=== PATIENT | male | born 1975 | race African-American/Black ===

== ENCOUNTER 2017-11-11 13:40 | Inpatient (IN) | payer MEDICAID ==
[~2017-11-11] VITALS: Ht 177.8 cm; Wt 87.4 kg
[~2017-11-11 13:40] MED LIST: DIPH25CA66 PO; HYDR2TAB58 PO
[2017-11-11 15:20] LABS: Basophils # (auto) 0.1 uL; Eosinophils # (auto) 0.4 uL; Monocytes # (auto) 2.8 uL; Neutrophils # (auto) 10.2 uL
[2017-11-11 15:26] LABS: Basophils % (auto) 0.4 % (0.0-2.0); Eosinophils % (auto) 2.5 % (0.0-7.0); Hemoglobin 12.4 g/dL (13.5-17.5); Lymphocytes # (auto) 3.3 uL; Lymphocytes % (auto) 19.9 % (10.0-50.0); Mean Corpuscular Hgb Conc. 34.5 g/dL (32.0-36.0); Mean Corpuscular Volume 87.1 fL (80.0-100.0); Monocytes % (auto) 16.7 % (0.0-12.0); Neutrophils % (auto) 60.5 % (37.0-80.0); Platelet Count (auto) 396 10^3/uL (140-450); Red Blood Cells 4.13 10^6/uL (4.5-5.90); Red Cell Distribution Width 17.6 % (11.8-14.3); White Blood Cell 16.8 10^3/uL (4.4-10.8)
[2017-11-11 15:35] LABS: Albumin 4.1 g/dL (3.4-5.0); BUN/Creatinine Ratio 5.6; Potassium 4.6 mmol/L (3.5-5.1); Total Protein 8.3 g/dL (6.4-8.2)
[2017-11-11] MEDS ORDERED: SODIUM CHLORIDE 0.9% 1,000 ML IVB ONE (15:52)
[2017-11-11] MEDS ORDERED: SODIUM CHLORIDE 0.9% 1,000 ML IV ONE (16:00)
[2017-11-11] MEDS ORDERED: ONDANSETRON HCL 4 MG/2 ML VIAL IV ONE (16:00)
[2017-11-11] MEDS ORDERED: MEPERIDINE HCL (25 MG/ML) 1ML VIAL IV ONE ×2 (16:00→18:00)
[2017-11-11] MEDS ORDERED: MEPERIDINE HCL (50 MG/ML) 1 ML VIAL ONE ×2 (16:14→17:51)
[2017-11-11] MEDS ORDERED: PROMETHAZINE HCL 25 MG/ML 1ML IV ONE ×2 (16:15→18:00)
[2017-11-11] MEDS ORDERED: PROMETHAZINE HCL 25 MG/ML 1ML ONE (17:51)
[2017-11-11 18:57] LABS: Urine Bacteria NONE SEEN /hpf (None Seen); Urine Blood Negative /uL (Negative); Urine Specific Gravity 1.003 (1.001-1.035); Urine WBC <1 /hpf (0 - 3)
[2017-11-11] MEDS ORDERED: FOLIC ACID 1 MG in D5W 5% 50 ML INJ ONE (19:30)
[2017-11-11] MEDS ORDERED: LORazepam 0.5 MG TAB PO PRN (19:30)
[2017-11-11] MEDS ORDERED: ACETAMINOPHEN 500 MG TAB PO PRN (19:30)
[2017-11-11] MEDS ORDERED: NITROGLYCERIN 0.4 MG SL TAB SL PRN (19:30)
[2017-11-11] MEDS ORDERED: HYDROcodone-ACET 5/325MG TAB PO PRN (19:30)
[2017-11-11] MEDS ORDERED: LACTULOSE 20Gm/30ML SOLN PO PRN (19:30)
[2017-11-11] MEDS ORDERED: HYDROmorphone HCL 2 MG/ML VL IV PRN (19:30)
[2017-11-11] MEDS ORDERED: NALBUPHINE HCL 10 MG/1ml INJECTION IV PRN (20:00)
[2017-11-11] MEDS ORDERED: OXYCODONE W/ ACETAMINOPHEN 5/325MG TABLET PO PRN (20:00)
[2017-11-11] MEDS: D5W/SOD CHLO 0.9% 1,000 ML IV SCH (20:11)
[2017-11-11] MEDS ORDERED: FOLIC ACID 1 MG TAB PO ONE (20:15)
[2017-11-11 20:21] LABS: INR 0.94 (0.9-1.15); Partial Thromboplastin Time 27.8 sec (23.78-33.04); Prothrombin Time 10.1 sec (9.27-12.13)
[2017-11-11] MEDS: NALBUPHINE HCL 10 MG/1ml INJECTION IV PRN (22:43)
[2017-11-12] MEDS: OXYCODONE W/ ACETAMINOPHEN 5/325MG TABLET PO PRN ×3 (00:06→15:28)
[2017-11-12] MEDS ORDERED: KETOROLAC TROMETH 30 MG/ML 1ML VIAL IV ONE (01:15)
[2017-11-12] MEDS: TEMAZEPAM 15 MG CAP PO PRN (01:35)
[2017-11-12] MEDS: NALBUPHINE HCL 10 MG/1ml INJECTION IV PRN ×2 (05:58→19:14)
[2017-11-12] MEDS: D5W/SOD CHLO 0.9% 1,000 ML IV SCH (06:09)
[2017-11-12 06:37] LABS: Basophils # (auto) 0.1 uL; Basophils % (auto) 0.8 % (0.0-2.0); Eosinophils # (auto) 0.4 uL; Eosinophils % (auto) 2.8 % (0.0-7.0); Hematocrit 33.3 % (41.0-53.0); Hemoglobin 11.4 g/dL (13.5-17.5); Lymphocytes # (auto) 4.3 uL; Lymphocytes % (auto) 29.1 % (10.0-50.0); Mean Corpuscular Hemoglobin 29.4 pg (28.0-32.0); Mean Corpuscular Hgb Conc. 34.2 g/dL (32.0-36.0); Mean Corpuscular Volume 86.1 fL (80.0-100.0); Monocytes % (auto) 13.4 % (0.0-12.0); Neutrophils % (auto) 53.9 % (37.0-80.0); Platelet Count (auto) 358 10^3/uL (140-450); Red Blood Cells 3.87 10^6/uL (4.5-5.90); Red Cell Distribution Width 17.5 % (11.8-14.3); White Blood Cell 14.9 10^3/uL (4.4-10.8)
[2017-11-12] MEDS: PANTOPRAZOLE 40 MG TAB PO SCH (06:39)
[2017-11-12 10:00] VITALS: BP 142/65
[2017-11-12] MEDS: ENOXAPARIN SOD 40 MG/0.4 ML SYRINGE SC SCH (10:00)
[2017-11-12] MEDS: FOLIC ACID 1 MG TAB PO SCH (11:22)
[2017-11-12] MEDS ORDERED: MEPERIDINE HCL (50 MG/ML) 1 ML VIAL IV ONE (12:00)
[2017-11-12] MEDS ORDERED: MEPERIDINE HCL (25 MG/ML) 1ML VIAL IV PRN (13:00)
[2017-11-12] MEDS: PROMETHAZINE HCL 25 MG/ML 1ML IV PRN ×2 (13:19→17:27)
[2017-11-12] MEDS: MEPERIDINE HCL (50 MG/ML) 1 ML VIAL IV PRN ×3 (13:20→21:39)
[2017-11-12 14:30] LABS: Hematocrit 34.8 % (41.0-53.0); Hemoglobin 11.8 g/dL (13.5-17.5)
[2017-11-12] MEDS: SOD CHL 0.45% 1,000 ML IV SCH ×2 (14:34→21:39)
[2017-11-12 15:00] VITALS: BP 142/65
[2017-11-12] MEDS ORDERED: PERCOT GT (15:39)
[2017-11-12 22:00] VITALS: BP 146/81
[2017-11-13] MEDS: TEMAZEPAM 15 MG CAP PO PRN ×2 (01:05→23:53)
[2017-11-13] MEDS: NALBUPHINE HCL 10 MG/1ml INJECTION IV PRN ×2 (01:18→09:07)
[2017-11-13] MEDS: MEPERIDINE HCL (50 MG/ML) 1 ML VIAL IV PRN ×6 (01:18→23:52)
[2017-11-13] MEDS: SOD CHL 0.45% 1,000 ML IV SCH ×4 (03:34→23:10)
[2017-11-13] MEDS: PANTOPRAZOLE 40 MG TAB PO SCH (05:03)
[2017-11-13 05:37] VITALS: BP 163/95
[2017-11-13 08:00] VITALS: BP 124/64
[2017-11-13 08:01] LABS: Hematocrit 33.9 % (41.0-53.0); Hemoglobin 11.4 g/dL (13.5-17.5); Mean Corpuscular Hemoglobin 28.9 pg (28.0-32.0); Mean Corpuscular Hgb Conc. 33.7 g/dL (32.0-36.0); Mean Corpuscular Volume 85.8 fL (80.0-100.0); Platelet Count (auto) 373 10^3/uL (140-450); Red Blood Cells 3.95 10^6/uL (4.5-5.90); Red Cell Distribution Width 17.1 % (11.8-14.3); White Blood Cell 14.8 10^3/uL (4.4-10.8)
[2017-11-13 08:13] LABS: Band Neutrophils % (manual) 0; Basophils % (manual) 0 (0.0-2.0); Blast Cells 0; Metamyelocytes % 0; Myelocytes % 0; Promyelocytes % 0; Reactive Lymphocytes 0
[2017-11-13 08:23] LABS: BUN/Creatinine Ratio 6.6; Calcium 8.7 mg/dL (8.5-10.1); Magnesium 2.3 mg/dL (1.6-2.6); Potassium 3.6 mmol/L (3.5-5.1)
[2017-11-13 08:32] LABS: Eosinophils % (manual) 2 (0-7); Lymphocytes % (manual) 36 (10.0-50.0); Monocytes % (manual) 12 (0-12)
[2017-11-13] MEDS: FOLIC ACID 1 MG TAB PO SCH (09:08)
[2017-11-13] MEDS: ENOXAPARIN SOD 40 MG/0.4 ML SYRINGE SC SCH (09:08)
[2017-11-13 12:07] VITALS: BP 128/60
[2017-11-13] MEDS ORDERED: HYDROmorphone HCL 2 MG TAB PO PRN (16:30)
[2017-11-13] MEDS ORDERED: MEPERIDINE HCL (50 MG/ML) 1 ML VIAL IV PRN (16:30)
[2017-11-13 16:52] VITALS: BP 140/72
[2017-11-13 22:00] VITALS: BP 136/61
[2017-11-14] MEDS: SOD CHL 0.45% 1,000 ML IV SCH ×2 (03:37→12:30)
[2017-11-14] MEDS: MEPERIDINE HCL (50 MG/ML) 1 ML VIAL IV PRN ×3 (03:38→11:54)
[2017-11-14] MEDS: PANTOPRAZOLE 40 MG TAB PO SCH (05:51)
[2017-11-14 06:00] VITALS: BP 127/68
[2017-11-14 09:00] VITALS: BP 145/84
[2017-11-14] MEDS: FOLIC ACID 1 MG TAB PO SCH (09:31)
[2017-11-14] MEDS: ENOXAPARIN SOD 40 MG/0.4 ML SYRINGE SC SCH (09:31)
[2017-11-14 13:07] VITALS: BP 157/84
== END 2017-11-14 13:50 | disposition home or self-care (01) | DRG 662 ==
LOC: ER 13:40 → TELE 13:41 → TELE-WESTW 11-12 10:04
PROVIDERS: ADMIT Internal Medicine; ATTEND Internal Medicine
DX: D57.00 Hb-SS disease with crisis, unspecified (principal); D72.829 Elevated white blood cell count, unspecified; G89.4 Chronic pain syndrome; F12.90 Cannabis use, unspecified, uncomplicated; G47.00 Insomnia, unspecified; K59.00 Constipation, unspecified; R79.89 Other specified abnormal findings of blood chemistry; F41.9 Anxiety disorder, unspecified; F17.210 Nicotine dependence, cigarettes, uncomplicated; Z82.49 Family history of ischemic heart disease and other diseases of the circulatory system; Z83.3 Family history of diabetes mellitus; Z90.49 Acquired absence of other specified parts of digestive tract; Z80.8 Family history of malignant neoplasm of other organs or systems; Z88.6 Allergy status to analgesic agent; Z88.5 Allergy status to narcotic agent; Z79.899 Other long term (current) drug therapy
CPT/HCPCS: 36415; 71046; 80048; 80053; 81001; 83615; 83735; 85007; 85014; 85018; 85025; 85027; 85045; 85610; 85730; 87081; 93005; 94761; 96361; 96374; 96375; 96376; J1885; J7060

== ENCOUNTER 2021-08-02 13:40 | Inpatient (IN) | payer MEDICAID, OTHER ==
[~2021-08-02] VITALS: Ht 177.8 cm; Wt 88.8 kg
[~2021-08-02 13:40] MED LIST changes: -HYDR2TAB58 PO
[2021-08-02] MEDS ORDERED: SODIUM CHLORIDE 0.9% 1,000 ML IV ONE ×2 (14:00→17:00)
[2021-08-02] MEDS ORDERED: HYDROmorphone HCL 2 MG/ML VL IV ONE ×5 (14:00→20:45)
[2021-08-02] MEDS ORDERED: ONDANSETRON HCL 4 MG/2 ML VIAL IV ONE (14:00)
[2021-08-02 15:29] LABS: Basophils # (auto) 0.2 10 ^3/uL (0-0.2); Basophils % (auto) 0.9 % (0.0-2.0); Eosinophils # (auto) 0.4 10 ^3/uL (0-0.8); Eosinophils % (auto) 2.1 % (0.0-7.0); Hemoglobin 10.5 g/dL (13.5-17.5); Lymphocytes % (auto) 22.9 % (10.0-50.0); Mean Corpuscular Hemoglobin 30.8 pg (28.0-32.0); Mean Corpuscular Hgb Conc. 33.9 g/dL (32.0-36.0); Mean Corpuscular Volume 90.7 fL (80.0-100.0); Monocytes # (auto) 2.1 10 ^3/uL (0-1.3); Monocytes % (auto) 12.2 % (0.0-12.0); Neutrophils # (auto) 10.7 10 ^3/uL (1.6-8.6); Neutrophils % (auto) 61.9 % (37.0-80.0); Nucleated Red Blood Cells % 1.1 %; Red Blood Cells 3.41 10^6/uL (4.5-5.90); Red Cell Distribution Width 14.6 % (11.8-14.3); White Blood Cell 17.3 10^3/uL (4.4-10.8)
[2021-08-02 15:38] LABS: Albumin 3.6 g/dL (3.4-5.0); BUN/Creatinine Ratio 10.2; Calcium 8.9 mg/dL (8.5-10.1); Potassium 4.5 mmol/L (3.5-5.1)
[2021-08-02 15:41] LABS: Total Protein 7.3 g/dL (6.4-8.2)
[2021-08-02] MEDS ORDERED: TEMAZEPAM 15 MG CAP PO PRN (19:15)
[2021-08-02] MEDS ORDERED: ACETAMINOPHEN 325 MG TAB PO PRN (19:15)
[2021-08-02] MEDS ORDERED: ONDANSETRON HCL 4 MG/2 ML VIAL IV PRN (19:15)
[2021-08-02] MEDS ORDERED: HYDROcodone-ACET 5/325MG TAB PO PRN (19:15)
[2021-08-02] MEDS ORDERED: SODIUM CHLORIDE 0.9% 1,000 ML IV SCH (19:15)
[2021-08-02] MEDS: HYDROmorphone HCL 2 MG/ML VL IV PRN ×2 (19:52→23:58)
[2021-08-02 23:00] VITALS: BP 152/85
[2021-08-02 23:43] VITALS: BP 152/82
[2021-08-03] MEDS ORDERED: HYDROmorphone HCL 2 MG/ML VL IV ONE ×2 (00:15→04:00)
[2021-08-03 04:56] VITALS: BP 151/79
[2021-08-03] MEDS ORDERED: FOLI1TAB6 PO (05:00)
[2021-08-03] MEDS ORDERED: HYDR500C PO (05:00)
[2021-08-03 05:58] LABS: Hematocrit 28.3 % (41.0-53.0); Hemoglobin 10.1 g/dL (13.5-17.5); Mean Corpuscular Hemoglobin 31.8 pg (28.0-32.0); Mean Corpuscular Hgb Conc. 35.6 g/dL (32.0-36.0); Mean Corpuscular Volume 89.5 fL (80.0-100.0); Red Blood Cells 3.16 10^6/uL (4.5-5.90); Red Cell Distribution Width 15.2 % (11.8-14.3); White Blood Cell 17.6 10^3/uL (4.4-10.8)
[2021-08-03 06:12] LABS: Albumin 3.6 g/dL (3.4-5.0); Calcium 8.5 mg/dL (8.5-10.1); Potassium 4.4 mmol/L (3.5-5.1)
[2021-08-03 06:17] LABS: BUN/Creatinine Ratio 8.2; Bilirubin, Total 2.2 mg/dL (0.2-1.0); Total Protein 7.4 g/dL (6.4-8.2)
[2021-08-03] MEDS ORDERED: KETOROLAC TROMETH 30 MG/ML 1ML VIAL IV ONE (06:17)
[2021-08-03 06:22] LABS: Band Neutrophils % (manual) 0; Basophils % (manual) 0 (0.0-2.0); Blast Cells 0; Metamyelocytes % 0; Myelocytes % 0; Promyelocytes % 0; Reactive Lymphocytes 0
[2021-08-03] MEDS: HYDROcodone-ACET 7.5/325MG TAB PO PRN ×2 (06:32→21:50)
[2021-08-03 08:31] LABS: Eosinophils % (manual) 3 (0-7); Lymphocytes % (manual) 33 (10.0-50.0); Monocytes % (manual) 19 (0-12)
[2021-08-03] MEDS: PANTOPRAZOLE 40 MG/10 ML VIAL INJ IV SCH (08:43)
[2021-08-03 09:00] VITALS: BP 146/82
[2021-08-03] MEDS: HYDROmorphone HCL 2 MG/ML VL IV PRN ×7 (09:04→22:38)
[2021-08-03] MEDS ORDERED: LACTATED RINGER'S 1,000 ML IV SCH ×2 (11:00→12:00)
[2021-08-03 12:33] LABS: Urine Bacteria NONE SEEN /hpf (None Seen); Urine Blood Negative /uL (Negative); Urine Specific Gravity 1.011 (1.001-1.035); Urine WBC <1 /hpf (0 - 3)
[2021-08-03 13:00] VITALS: BP 147/79
[2021-08-03] MEDS ORDERED: diphenhdrAMINE HCL 25 MG CAP PO PRN (13:30)
[2021-08-03] MEDS ORDERED: ACETAMINOPHEN 325 MG TAB PO PRN (15:30)
[2021-08-03] MEDS: LACTATED RINGER'S 1,000 ML IV SCH ×2 (15:32→21:45)
[2021-08-03 17:00] VITALS: BP_SYST 161; BP_SYST 92; BP_DIAS 54; BP_DIAS 91
[2021-08-03 22:00] VITALS: BP 159/80
[2021-08-04] MEDS: HYDROmorphone HCL 2 MG/ML VL IV PRN ×6 (02:33→23:23)
[2021-08-04] MEDS: LACTATED RINGER'S 1,000 ML IV SCH ×3 (04:50→23:25)
[2021-08-04 05:00] VITALS: BP 141/81
[2021-08-04] MEDS: HYDROcodone-ACET 7.5/325MG TAB PO PRN ×4 (05:51→20:14)
[2021-08-04 07:03] LABS: Basophils # (auto) 0.2 10 ^3/uL (0-0.2); Basophils % (auto) 1.2 % (0.0-2.0); Eosinophils # (auto) 0.2 10 ^3/uL (0-0.8); Eosinophils % (auto) 1.3 % (0.0-7.0); Hematocrit 26.7 % (41.0-53.0); Hemoglobin 9.4 g/dL (13.5-17.5); Lymphocytes # (auto) 3.3 10 ^3/uL (0.4-5.4); Lymphocytes % (auto) 19.2 % (10.0-50.0); Mean Corpuscular Hemoglobin 31.3 pg (28.0-32.0); Mean Corpuscular Volume 89.3 fL (80.0-100.0); Monocytes # (auto) 2.8 10 ^3/uL (0-1.3); Monocytes % (auto) 16.6 % (0.0-12.0); Neutrophils # (auto) 10.6 10 ^3/uL (1.6-8.6); Neutrophils % (auto) 61.7 % (37.0-80.0); Nucleated Red Blood Cells % 2.1 %; Red Cell Distribution Width 15.2 % (11.8-14.3); White Blood Cell 17.2 10^3/uL (4.4-10.8)
[2021-08-04 07:13] LABS: Potassium 4.2 mmol/L (3.5-5.1)
[2021-08-04 07:19] LABS: Albumin 3.5 g/dL (3.4-5.0); BUN/Creatinine Ratio 9.2; Calcium 8.9 mg/dL (8.5-10.1)
[2021-08-04 07:22] LABS: Bilirubin, Total 3.1 mg/dL (0.2-1.0); Total Protein 7.2 g/dL (6.4-8.2)
[2021-08-04 09:00] VITALS: BP 142/66
[2021-08-04] MEDS: FOLIC ACID 1 MG TAB PO SCH (09:45)
[2021-08-04] MEDS: PANTOPRAZOLE 40 MG/10 ML VIAL INJ IV SCH (09:45)
[2021-08-04] MEDS: KETOROLAC TROMETH 30 MG/ML 1ML VIAL IV SCH ×2 (12:00→17:51)
[2021-08-04 13:00] VITALS: BP 147/91
[2021-08-04 16:59] VITALS: BP 146/69
[2021-08-04] MEDS: hydroxyUREA 500 MG CAP PO SCH (21:56)
[2021-08-04 22:00] VITALS: BP 145/81
[2021-08-05] MEDS: HYDROmorphone HCL 2 MG/ML VL IV PRN ×2 (03:38→07:51)
[2021-08-05 05:00] VITALS: BP 153/74
[2021-08-05] MEDS: KETOROLAC TROMETH 30 MG/ML 1ML VIAL IV SCH ×2 (05:51)
[2021-08-05 09:00] VITALS: BP 140/78
[2021-08-05] MEDS ORDERED: HYDROcodone-ACET 10/325MG TAB PO PRN (09:30)
[2021-08-05] MEDS ORDERED: LACTATED RINGER'S 1,000 ML IV SCH (09:30)
[2021-08-05 09:48] LABS: BUN/Creatinine Ratio 11.6; Calcium 9.3 mg/dL (8.5-10.1); Magnesium 2.8 mg/dL (1.6-2.6); Potassium 4.4 mmol/L (3.5-5.1)
[2021-08-05] MEDS ORDERED: HYDROmorphone HCL 2 MG/ML VL IV PRN (10:00)
[2021-08-05] MEDS: PANTOPRAZOLE 40 MG/10 ML VIAL INJ IV SCH (10:18)
[2021-08-05] MEDS: FOLIC ACID 1 MG TAB PO SCH (10:19)
[2021-08-05] MEDS: hydroxyUREA 500 MG CAP PO SCH (10:19)
[2021-08-05 10:34] LABS: Basophils # (auto) 0.1 10 ^3/uL (0-0.2); Basophils % (auto) 0.5 % (0.0-2.0); Eosinophils # (auto) 0.3 10 ^3/uL (0-0.8); Eosinophils % (auto) 2.1 % (0.0-7.0); Hematocrit 26.7 % (41.0-53.0); Hemoglobin 9.4 g/dL (13.5-17.5); Lymphocytes % (auto) 19.6 % (10.0-50.0); Mean Corpuscular Hemoglobin 31.3 pg (28.0-32.0); Mean Corpuscular Hgb Conc. 35.1 g/dL (32.0-36.0); Mean Corpuscular Volume 89.2 fL (80.0-100.0); Monocytes # (auto) 2.1 10 ^3/uL (0-1.3); Monocytes % (auto) 13.9 % (0.0-12.0); Neutrophils # (auto) 9.8 10 ^3/uL (1.6-8.6); Neutrophils % (auto) 63.9 % (37.0-80.0); Nucleated Red Blood Cells % 1.2 %; Red Blood Cells 2.99 10^6/uL (4.5-5.90); Red Cell Distribution Width 16.4 % (11.8-14.3); White Blood Cell 15.4 10^3/uL (4.4-10.8)
== END 2021-08-05 14:00 | disposition left against medical advice (07) | DRG 662 ==
LOC: ER 13:40 → OVERFLOW 19:14 → WEST WING 22:10
PROVIDERS: ADMIT Nurse Practitioner; ATTEND Hospitalist
PROC: 05H933Z Insertion of Infusion Device into Right Brachial Vein, Percutaneous Approach (ICD-10-PCS; principal; 2021-08-03)
PROC: B54MZZA Ultrasonography of Right Upper Extremity Veins, Guidance (ICD-10-PCS; 2021-08-03)
DX: D57.00 Hb-SS disease with crisis, unspecified (principal); E87.1 Hypo-osmolality and hyponatremia; R65.10 Systemic inflammatory response syndrome (SIRS) of non-infectious origin without acute organ dysfunction; D72.829 Elevated white blood cell count, unspecified; G89.4 Chronic pain syndrome; F11.20 Opioid dependence, uncomplicated; F12.90 Cannabis use, unspecified, uncomplicated; F17.210 Nicotine dependence, cigarettes, uncomplicated; M54.9 Dorsalgia, unspecified; Z53.29 Procedure and treatment not carried out because of patient's decision for other reasons; R50.9 Fever, unspecified; Z83.2 Family history of diseases of the blood and blood-forming organs and certain disorders involving the immune mechanism; Z83.3 Family history of diabetes mellitus; Z90.49 Acquired absence of other specified parts of digestive tract; Z88.8 Allergy status to other drugs, medicaments and biological substances; Z88.5 Allergy status to narcotic agent
CPT/HCPCS: 36415; 71045; 73030; 80048; 80053; 81001; 83021; 83605; 83615; 83735; 85007; 85025; 85027; 85045; 85660; 87040; 96361; 96374; 96375; 96376; C9113; G0378; J1885; J2405

== ENCOUNTER 2021-10-18 12:56 | Emergency (ER) | payer OTHER ==
[~2021-10-18] VITALS: Ht 177.8 cm; Wt 86.2 kg
[2021-10-18 12:56] VITALS: BP 153/90
[~2021-10-18 12:56] MED LIST changes: +FOLI1TAB6 PO; +HYDR500C PO
[2021-10-18] MEDS ORDERED: ONDANSETRON HCL 4 MG/2 ML VIAL IV ONE (13:15)
[2021-10-18] MEDS ORDERED: MORPHINE SULFATE 4 MG/ML SYR/VIAL IV ONE (13:15)
[2021-10-18] MEDS ORDERED: SODIUM CHLORIDE 0.9% 1,000 ML IV ONE ×2 (13:15)
[2021-10-18 15:06] LABS: Alanine Aminotransferase 33 U/L (16-61); Albumin 3.8 g/dL (3.4-5.0); Anion Gap 8 (5-15); Aspartate Aminotransferase 59 U/L (15-37); BUN/Creatinine Ratio 10.5; Blood Urea Nitrogen 11 mg/dL (7-18); Calcium 9.2 mg/dL (8.5-10.1); Carbon Dioxide 24 mmol/L (21-32); Chloride 100 mmol/L (98-107); GFR African American 98 mL/min; GFR Non-African American 81 mL/min; Glucose 93 mg/dL (74-106); Sodium 132 mmol/L (136-145)
[2021-10-18 15:09] LABS: Alkaline Phosphatase 128 U/L (45-117); Total Protein 8.7 g/dL (6.4-8.2)
[2021-10-18 15:39] LABS: Hematocrit 35.8 % (41.0-53.0); Hemoglobin 12.2 g/dL (13.5-17.5); Mean Corpuscular Hemoglobin 30.7 pg (28.0-32.0); Mean Corpuscular Hgb Conc. 34.2 g/dL (32.0-36.0); Mean Corpuscular Volume 89.7 fL (80.0-100.0); Red Blood Cells 3.99 10^6/uL (4.5-5.90); Red Cell Distribution Width 16.6 % (11.8-14.3); White Blood Cell 21.6 10^3/uL (4.4-10.8)
[2021-10-18 15:51] LABS: Basophils % (manual) 0 (0.0-2.0); Blast Cells 0; Myelocytes % 0; Promyelocytes % 0
[2021-10-18 17:40] LABS: Eosinophils % (manual) 0 (0-7); Metamyelocytes % 2; Reactive Lymphocytes 2
[2021-10-18 17:41] LABS: Band Neutrophils % (manual) 6; Lymphocytes % (manual) 3 (10.0-50.0); Monocytes % (manual) 12 (0-12)
== END 2021-10-18 23:16 | disposition left against medical advice (07) ==
LOC: ER 12:56
DX: D57.00 Hb-SS disease with crisis, unspecified (principal); D72.829 Elevated white blood cell count, unspecified; F17.210 Nicotine dependence, cigarettes, uncomplicated; Z86.2 Personal history of diseases of the blood and blood-forming organs and certain disorders involving the immune mechanism; Z90.49 Acquired absence of other specified parts of digestive tract; Z79.899 Other long term (current) drug therapy; Z88.5 Allergy status to narcotic agent; Z88.8 Allergy status to other drugs, medicaments and biological substances
CPT/HCPCS: 36415; 80053; 85007; 85027; 85045